=== PATIENT | male | born 1945 | race Caucasian/White ===

== ENCOUNTER 2018-10-14 09:17 | Outpatient (CLI) | payer MEDICARE, SELFPAY ==
[2018-10-14 10:21] LABS: PHA INR Fingerstick 2.4 (0.9-1.1)
== END 2018-10-14 10:23 | disposition home or self-care (01) ==
LOC: ACC 09:22
PROVIDERS: PCP Nuclear Medicine Nuclear Cardiology; Visit Provider Nurse Practitioner Family
DX: Z51.81 Encounter for therapeutic drug level monitoring (principal); Z79.01 Long term (current) use of anticoagulants; I25.10 Atherosclerotic heart disease of native coronary artery without angina pectoris; Z95.0 Presence of cardiac pacemaker
CPT/HCPCS: 85610; 99211; G0463

== ENCOUNTER 2018-11-25 09:28 | Outpatient (CLI) | payer MEDICARE, SELFPAY ==
[2018-11-25 14:25] LABS: PHA INR Fingerstick 2.2 (0.9-1.1)
== END 2018-11-25 14:30 | disposition home or self-care (01) ==
LOC: ACC 09:30
PROVIDERS: PCP Nurse Practitioner Family; Visit Provider Nurse Practitioner Family
DX: Z51.81 Encounter for therapeutic drug level monitoring (principal); Z79.01 Long term (current) use of anticoagulants
CPT/HCPCS: 85610; 99211; G0463

== ENCOUNTER → 2023-01-08 15:25 | Outpatient (CLI) | payer MEDICARE, SELFPAY ==
[2023-01-08 17:48] LABS: Alanine Aminotransferase 20 U/L (12-78); Albumin Level 4.1 g/dl (3.5-5.0); Albumin/Globulin Ratio 1.3 (1.1-1.8); Alkaline Phosphatase 74 U/L (38-126); Anion Gap 13.2 mEq/L (5-15); Aspartate Amino Transferase 28 U/L (17-59); Bilirubin,Total 0.5 mg/dl (0.2-1.3); Blood Urea Nitrogen 30 mg/dl (9-20); Calcium 9.1 mg/dl (8.4-10.2); Carbon Dioxide 27 mmol/L (22.0-30.0); Chloride 103 mmol/L (98-107); Estimated Glomerular Filt Rate 42 ml/min (>60); GFR (African American) 51 ML/MIN (>60); Globulin 3.2 g/dL (1.3-3.2); Glucose 105 mg/dl (74-100); Potassium 4.2 mmoL/L (3.5-5.1); Sodium 139 mmol/L (136-145); Total Protein,Serum 7.3 g/dl (6.3-8.2)
[2023-01-08 18:02] LABS: Basophils % 0.3 % (0.1-2.0); Eosinophils # 0.2 K/mm3 (0.0-0.4); Eosinophils % 2.5 % (0.1-12.0); Hematocrit 42.4 % (42.0-52.0); Lymphocytes % 22.6 % (10-50); Mean Corpuscular Hemoglobin 28.3 pg (27.0-31.2); Mean Corpuscular Volume 85.9 fl (80-94); Mean Platelet Volume 8.4 fl (7.4-10.4); Monocytes # 0.8 K/mm3 (0.1-1.0); Monocytes % 8.5 % (1.7-9.3); Neutrophils # 5.8 K/mm3 (1.8-7.8); Platelet Count 184 K/mm3 (142-424); Red Blood Count 4.94 M/mm3 (4.60-6.20); Red Cell Distribution Width 14.4 % (11.5-17.5); White Blood Count 8.8 K/mm3 (4.8-10.8)
[2023-01-08 18:06] LABS: INR 2.42 (0.9-1.1); Prothrombin Time 24.7 seconds (10.1-12.5); T4 (Thyroxine) 9.2 ug/dl (5.53-11.0)
[2023-01-08 18:19] LABS: Thyroid Stimulating Hormone 0.76 uIU/mL (0.465-4.68)
== END ==
PROVIDERS: PCP Family Medicine; Visit Provider Family Medicine
DX: I48.91 Unspecified atrial fibrillation (principal); I10 Essential (primary) hypertension; E05.90 Thyrotoxicosis, unspecified without thyrotoxic crisis or storm; Z51.81 Encounter for therapeutic drug level monitoring; Z79.01 Long term (current) use of anticoagulants
CPT/HCPCS: 80053; 84436; 84443; 85025; 85610

== ENCOUNTER → 2023-01-10 07:48 | Outpatient (CLI) | payer MEDICARE, SELFPAY ==
--- NOTE | 2023-01-10 07:54 | US_ITS ---
FINAL REPORT CLINICAL HISTORY: thyroid nodule COMPARISON: None FINDINGS: THYROID ULTRASOUND: The right lobe of the thyroid gland is somewhat enlarged measuring 5.5 x 2.2 x 1.6 cm in size. The right lobe is diffusely heterogeneous. There is a nodule present in the right lobe of the thyroid gland which measures 7 x 5 x 5 mm in size, is mixed cystic and solid and isoechoic, a TI-RADS 2 nodule by category. The left lobe of the thyroid gland is also somewhat enlarged, measuring 4.6 x 2 x 1.7 cm in size. The left lobe is diffusely heterogeneous, making individual nodules difficult to distinguish. The isthmus of the thyroid gland measures 6 mm in thickness. IMPRESSION: Mildly enlarged diffusely heterogeneous thyroid gland, with a single 7 mm nodule in the right lobe of the thyroid gland, a TI-RADS 2 category nodule. No follow-up is required at this time by TI-RADS criteria. Reviewed, Interpreted and Dictated by Lawrence Davis III, MD Transcribed by Carol Mcnulty Authenticated and [facility]
--- NOTE | 2023-01-10 07:54 | US_ITS ---
FINAL REPORT CLINICAL HISTORY: AAA COMPARISON: None FINDINGS: Sonographic images of the abdomen were obtained. There is fatty infiltration of the liver. The gallbladder has an unremarkable appearance without evidence of gallstones. There is no evidence of biliary ductal dilatation. The common hepatic duct measures 5 mm, which is within normal limits. Limited images of the pancreas are unremarkable. The spleen size is normal. The right kidney measures 8.3 in length. The left kidney measures 14.4 in length. The right kidney is significantly smaller than the left, with cortical thinning and/or scar. There is no evidence of hydronephrosis. There is an abdominal aortic aneurysm that measures 6.7 cm in greatest diameter. Limited images of the inferior vena cava are unremarkable. IMPRESSION: 6.7 cm diameter abdominal aortic aneurysm. These results were called to Dr. Mohit Sotelo on 01/10/2023 at 9:40 AM. Right kidney significantly smaller than the left with cortical thinning and/or scar. This may represent either renal artery stenosis or chronic pyelonephritis. Fatty infiltration of the liver. Reviewed, Interpreted and Dictated by Lawrence Davis III, MD Transcribed by Carol Mcnulty Authenticated and [facility]
== END ==
PROVIDERS: PCP Family Medicine; Visit Provider Family Medicine
DX: E04.1 Nontoxic single thyroid nodule (principal); I71.40 Abdominal aortic aneurysm, without rupture, unspecified
CPT/HCPCS: 76536; 76700

== ENCOUNTER 2023-10-04 11:19 | Outpatient (CLI) | payer MEDICARE, SELFPAY ==
[2023-10-04 16:54] LABS: INR 3.05 (0.9-1.1); Prothrombin Time 30.6 seconds (10.1-12.5)
== END 2023-10-04 23:59 | disposition home or self-care (01) ==
LOC: LAB.DROPOF 10-05 11:20
PROVIDERS: PCP Family Medicine; Visit Provider Family Medicine
DX: Z79.01 Long term (current) use of anticoagulants (principal); Z51.81 Encounter for therapeutic drug level monitoring
CPT/HCPCS: 85610

== ENCOUNTER 2023-11-06 10:35 | Outpatient (CLI) | payer MEDICARE, SELFPAY ==
[2023-11-06 17:55] LABS: INR 1.97 (0.9-1.1); Prothrombin Time 20.6 seconds (10.1-12.5)
== END 2023-11-06 23:59 | disposition home or self-care (01) ==
LOC: LAB.DROPOF 11-07 10:36
PROVIDERS: PCP Family Medicine; Visit Provider Family Medicine
DX: I48.20 Chronic atrial fibrillation, unspecified (principal); E78.5 Hyperlipidemia, unspecified; I10 Essential (primary) hypertension; I71.40 Abdominal aortic aneurysm, without rupture, unspecified; Z95.0 Presence of cardiac pacemaker
CPT/HCPCS: 85610

== ENCOUNTER 2023-12-16 14:25 | Outpatient (CLI) | payer MEDICARE, SELFPAY ==
[2023-12-16 16:58] LABS: INR 2.17 (0.9-1.1); Prothrombin Time 22.5 seconds (10.1-12.5)
== END 2023-12-16 23:59 | disposition home or self-care (01) ==
LOC: LAB.DROPOF 12-17 15:06
PROVIDERS: PCP Family Medicine; Visit Provider Family Medicine
DX: I48.20 Chronic atrial fibrillation, unspecified (principal)
CPT/HCPCS: 85610

== ENCOUNTER 2024-02-10 16:50 | Outpatient (CLI) | payer MEDICARE, SELFPAY ==
[2024-02-10 16:21] LABS: INR 2.58 (0.9-1.1); Prothrombin Time 26.3 seconds (10.1-12.5)
== END 2024-02-10 23:59 | disposition home or self-care (01) ==
LOC: LAB.DROPOF 16:50
PROVIDERS: PCP Family Medicine; Visit Provider Family Medicine
DX: I48.20 Chronic atrial fibrillation, unspecified (principal)
CPT/HCPCS: 85610

== ENCOUNTER 2024-04-21 14:45 | Outpatient (CLI) | payer MEDICARE, SELFPAY ==
[2024-04-21 17:15] LABS: INR 2.31 (0.9-1.1); Prothrombin Time 23.8 seconds (10.1-12.5)
[2024-04-21 17:22] LABS: Alanine Aminotransferase 19 U/L (12-78); Albumin/Globulin Ratio 1.5 (1.1-1.8); Alkaline Phosphatase 61 U/L (38-126); Aspartate Amino Transferase 31 U/L (17-59); Bilirubin,Total 0.7 mg/dl (0.2-1.3); Blood Urea Nitrogen 34 mg/dl (9-20); Calcium 9.1 mg/dl (8.4-10.2); Carbon Dioxide 25 mmol/L (22.0-30.0); Chloride 106 mmol/L (98-107); Estimated Glomerular Filt Rate 39 ml/min (>60); GFR (African American) 47 ML/MIN (>60); Globulin 2.6 g/dL (1.3-3.2); Glucose 98 mg/dl (74-100); Sodium 139 mmol/L (136-145); Total Protein,Serum 6.6 g/dl (6.3-8.2)
[2024-04-21 17:58] LABS: HIV Combo NEGATIVE (Negative)
[2024-04-21 18:23] LABS: Basophils % 0.5 % (0.1-2.0); Eosinophils % 1.1 % (0.1-12.0); Hemoglobin 12.9 g/dL (14.1-18.0); Mean Corpuscular HGB Conc 32.3 g/dL (31.8-35.4); Mean Corpuscular Hemoglobin 27.8 pg (27.0-31.2); Mean Corpuscular Volume 86.2 fl (80-94); Mean Platelet Volume 10.2 fl (7.4-10.4); Monocytes % 11.8 % (1.7-9.3); Neutrophils % 51.2 % (37.0-80.0); Platelet Count 166 K/mm3 (142-424); Red Blood Count 4.64 M/mm3 (4.60-6.20); Red Cell Distribution Width 15.1 % (11.5-17.5)
[2024-04-21 18:24] LABS: Basophils # 0.1 K/mm3 (0-0.2); Eosinophils # 0.1 K/mm3 (0.0-0.4); Lymphocytes # 3.9 K/mm3 (0.7-4.5); Monocytes # 1.3 K/mm3 (0.1-1.0); Neutrophils # 5.7 K/mm3 (1.8-7.8)
[2024-04-21 18:29] LABS: Anion Gap 12.1 mEq/L (5-15); Potassium 4.1 mmoL/L (3.5-5.1)
[2024-04-22 11:40] LABS: HCV Ab Non Reactive (Non Reactive)
== END 2024-04-21 23:59 | disposition home or self-care (01) ==
LOC: LAB.DROPOF 04-22 12:31
PROVIDERS: PCP Family Medicine; Visit Provider Family Medicine
DX: I48.20 Chronic atrial fibrillation, unspecified (principal); I71.40 Abdominal aortic aneurysm, without rupture, unspecified; N43.3 Hydrocele, unspecified; Z11.59 Encounter for screening for other viral diseases; Z11.4 Encounter for screening for human immunodeficiency virus [HIV]
CPT/HCPCS: 80053; 85025; 85610; 86803; 87389

== ENCOUNTER 2024-04-24 08:12 | Outpatient (CLI) | payer MEDICARE, SELFPAY ==
--- NOTE | 2024-04-24 08:17 | US_ITS ---
FINAL REPORT CLINICAL HISTORY: f/u AAA COMPARISON: 01/30/2023 FINDINGS: ULTRASOUND ABDOMINAL AORTA Sagittal and transverse images with Doppler exam was performed of the aorta. There is a large abdominal aortic aneurysm measuring up to 7.6 cm, previously measured 6.7 cm. The iliac vessels are not well-visualized. IMPRESSION: Enlarging abdominal aortic aneurysm. Recommend vascular surgical consultation and CTA for further evaluation Reviewed, Interpreted and Dictated by Verena Jackson MD Transcribed by Mary Maldonado Authenticated and [facility]
--- NOTE | 2024-04-24 08:17 | US_ITS ---
FINAL REPORT CLINICAL HISTORY: testicular swelling FINDINGS: SCROTAL ULTRASOUND Testes have a homogeneous architecture. No masses are seen. Normal flow is demonstrated by Doppler exam. No significant fluid collections are present. 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 Small bilateral hydroceles identified. Epididymal structures are unremarkable. IMPRESSION: Incidental note of microlithiasis bilaterally which can be associated with increased risk of the testicular neoplasm. Urologic follow-up may be considered. Reviewed, Interpreted and Dictated by Verena Jackson MD Transcribed by Mary Maldonado Authenticated and [facility]
== END 2024-04-24 23:59 | disposition home or self-care (01) ==
LOC: RAD 08:14
PROVIDERS: PCP Family Medicine; Visit Provider Family Medicine
DX: I71.40 Abdominal aortic aneurysm, without rupture, unspecified (principal); N43.3 Hydrocele, unspecified
CPT/HCPCS: 76770; 76870

== ENCOUNTER 2024-09-30 19:51 | Emergency (ER) | payer MEDICARE, SELFPAY ==
[2024-09-30] VITALS (11 sets, daily range): BP systolic 63–117; BP diastolic 36–70; PULSE 67–81; RESP 14–76; TEMP 35–36.6; O2SAT 94–97; BMI 31.1
--- OUTSIDE RECORDS SUMMARY | 2024-09-30 15:25 | XMS_ITS | Continuity of Care Document ---
Author Organization [facility] Phone Care Team Providers Care Electrical High Tension Tester Name Role Phone NEY WEBB Primary Attending NEY WEBB Admitting [phone] [facility] [phone] NEY WEBB Unavailable [phone] ALLERGIES AND ADVERSE REACTIONS ALLERGIES AND ADVERSE REACTIONS Code System Allergy Substance Adverse Reaction Date Reaction (Severity) Comment Status Reported By Updated By No Known Allergies [email or web address] on September 28, 2024 2:45:06 AM UT ASSESSMENTS Pneumonia ; PROBLEMS PATIENT PROBLEMS Code Description/Comments Category Status Upda araceli By [id number] Pneumonia active [id number] on September 28, 2024 2:40:19 AM UT RESULTS Patient: JACQUE Tony Date of : 1945 LABORATORY RESULTS ORDER 100: CBC AUTO W DIFF ( LOINC: 50927-8) ORDER DATE: September 27, 2024 11:13:00 PM UTC Specimen Source: Whole Blood Specimen Type: Whole blood s ample PERFORMING LAB: [address] [id number] Result Comment: Final Result Date: September 28, 2024 12:12:00 AM UT (TECH: RJV) LOINC TEST FLAG RESULT REFERENCE RANGE UPDA ARACELI BY 6690-2 Leukocytes [#/volume] in Blood by Automated count H 19.3 10^3/uL 4.5 10^3/uL - 11.5 10^3/uL September 28, 2024 12:12:00 AM UTC (TECH: RJV) 789-8 Erythrocytes [#/volume] in Blood by Automated count N 4.61 10^6/uL 4.25 10^6/uL - 5.57 10^6/uL September 28, 2024 12:12:00 AM UTC (TECH: [facility]) 718-7 Hemoglobin [Mass/volume] in Blood L 12.8 g/dL 13.5 g/dL - 17.2 g/dL September 28, 2024 12:12:00 AM UTC (TECH: [facility]) 25379-4 Hematocrit [Volume Fraction] of Blood L 39.8 % 42.0 % - 52.0 % September 28, 2024 12:12:00 AM UTC (TECH: [facility]) 787-2 Erythrocyte mean corpuscular volume [Entitic volume] by Automated count N 86.3 fl 80 fl - 95 fl September 28, 2024 12:12:00 AM UTC (TECH: [facility]) 04329-8 Erythrocyte mean corpuscular hemoglobin [Entitic mass] in Blood from Fetus by Automated count N 27.8 pg 27.0 pg - 34.0 pg September 28, 2024 12:12:00 AM UTC (TECH: [facility]) 91363-1 Erythrocyte mean corpuscular hemoglobin concentration [Mass/volume] in Blood from Fetus by Automated count N 32.2 g/dL 32.0 g/dL - 36.0 g/dL September 28, 2024 12:12:00 AM UTC (TECH: [facility]) 71925-6 Platelets [#/volume] in Blood L 126 10^3/uL 150 10^3/uL - 450 10^3/uL September 28, 2024 12:12:00 AM UTC (TECH: [facility]) 40002-2 Erythrocyte distribution width [Ratio] H 15.3 % 12.3 % - 15.1 % September 28, 2024 12:12:00 AM UTC (TECH: [facility]) 97173-8 Platelet mean volume [Entitic volume] in Blood by Automated count N 9.1 fl 7.4 fl - 10.4 fl September 28, 2024 12:12:00 AM UTC (TECH: [facility]) 08665-3 Granulocytes/100 leukocytes in Blood by Automated count L 24.4 % 40 % - 75 % September 28, 2024 12:12:00 AM UTC (TECH: [facility]) 736-9 Lymphocytes/100 leukocytes in Blood by Automated count N 45.6 % 15 % - 57 % September 28, 2024 12:12:00 AM UTC (TECH: RJV) 5905-5 Monocytes/100 leukocytes in Blood by Automated count H 27.9 % 4.0 % - 12.0 % September 28, 2024 12:12:00 AM UTC (TECH: RJV) 713-8 Eosinophils/100 leukocytes in Blood by Automated count N 1.3 % 0.0 % - 4.0 % September 28, 2024 12:12:00 AM UTC (TECH: RJV) 706-2 Basophils/100 leukocytes in Blood by Automated count N 0.3 % 0.0 % - 1.0 % September 28, 2024 12:12:00 AM UTC (TECH: RJV) 98079-5 Immature granulocytes [#/volume] in Blood N 0.5 % 0.0 % - 0.8 % September 28, 2024 12:12:00 AM UTC (TECH: RJV) 17118-0 Granulocytes [#/volume] in Blood by Automated count N 4.71 10^3/uL September 28, 2024 12:12:00 AM UTC (TECH: RJV) 731-0 Lymphocytes [#/volume] in Blood by Automated count N 8.80 10^3/uL September 28, 2024 12:12:00 AM UTC (TECH: RJV) 742-7 Monocytes [#/volume] in Blood by Automated count N 5.39 10^3/uL September 28, 2024 12:12:00 AM UTC (TECH: RJV) 711-2 Eosinophils [#/volume] in Blood by Automated count N 0.25 10^3/uL September 28, 2024 12:12:00 AM UTC (TECH: RJV) 704-7 Basophils [#/volume] in Blood by Automated count N 0.05 10^3/uL September 28, 2024 12:12:00 AM UTC (TECH: RJV) 44324-8 Immature granulocytes [#/volume] in Blood N 0.09 10^3/uL September 28, 2024 12:12:00 AM UTC (TECH: RJV) 44143-1 Manual differential performed [Presence] in Blood N YES September 28, 2024 12:12:00 AM UTC (TECH: RJV) 19096-0 Neutrophils.segmente d/100 leukocytes in Blood by Automated count L 24 % 36 % - 66 % September 28, 2024 12:12:00 AM UTC (TECH: RJV) 736-9 Lymphocytes/100 leukocytes in Blood by Automated count H 51 % 15 % - 41 % September 28, 2024 12:12:00 AM UTC (TECH: RJV) 5905-5 Monocytes/100 leukocytes in Blood by Automated count H 24 % 2 % - 9 % September 28, 2024 12:12:00 AM UTC (TECH: RJV) 713-8 Eosinophils/100 leukocytes in Blood by Automated count N 1 % 0 % - 3 % September 28, 2024 12:12:00 AM UTC (TECH: RJV) 13971-6 Erythrocytes [Morphology] in Blood by Automated count N NORMAL NORMAL September 28, 2024 12:12:00 AM UTC (TECH: RJV) 778-1 Platelets [#/volume] in Blood by Manual count N DECREASED ADEQUATE September 28, 2024 12:12:00 AM UTC (TECH: RJV) 9317-9 Platelet adequacy [Presence] in Blood by Light microscopy N NORMAL NORMAL September 28, 2024 12:12:00 AM UTC (TECH: RJV) ORDER 200: COMP METABOLIC PA LUIS ANTONIO (LOINC: 56339-5) ORDER DATE: September 27, 2024 11:13:00 PM UT Specimen Source: Plasma Specimen Type: Plasma specim en PERFORMING LAB: [address] [id number] Result Comment: Final Result Date: September 27, 2024 11:33:00 PM UT (TECH: RJV) LOINC TEST FLAG RESULT REFERENCE RANGE UPDA ARACELI BY 2951-2 Sodium [Moles/volume ] in Serum or Plasma N 138 mmol/L 136 mmol/L - 145 mmol/L September 27, 2024 11:33:00 PM UTC (TECH: RJV) 2823-3 Potassium [Moles/volume] in Serum or Plasma N 4.0 mmol/L 3.5 mmol/L - 5.1 mmol/L September 27, 2024 11:33:00 PM UTC (TECH: RJV) 2075-0 Chloride [Moles/volume] in Serum or Plasma N 102 mmol/L 98 mmol/L - 107 mmol/L September 27, 2024 11:33:00 PM UTC (TECH: [employer]) 8-9 Carbon dioxide, tota l [Moles/volume] in Serum or Plasma N 27 mmol/L 21 mmol/L - 32 mmol/L September 27, 2024 11:33:00 PM UTC (TECH: [employer]) 12210-2 Anion gap 3 in Serum or Plasma N 9.0 September 27, 2024 11:33:00 PM UTC (TECH: [employer]) 2345-7 Glucose [Mass/volume ] in Serum or Plasma H 129 mg/dL 70 mg/dL - 110 mg/dL September 27, 2024 11:33:00 PM UTC (TECH: [employer]) 3094-0 Urea nitrogen [Mass/volume] in Serum or Plasma H 27 mg/dL 7 mg/dL - 18 mg/dL September 27, 2024 11:33:00 PM UTC (TECH: [employer]) 2160-0 Creatinine [Mass/volume] in Serum or Plasma H 1.9 mg/dL 0.8 mg/dL - 1.3 mg/dL September 27, 2024 11:33:00 PM UTC (TECH: [employer]) 3097-3 Urea nitrogen/Creatinine [Mass Ratio] in Serum or Plasma N 14.2 9 - September 27, 2024 11:33:00 PM UTC (TECH: [employer]) 93840-3 Glomerular filtratio n rate/1.73 sq M.predicted by Creatinine-based formula (MDRD) L 35 mL/min >60 September 27, 2024 11:33:00 PM UTC (TECH: [employer]) 80110-1 Osmolality of Serum or Plasma by calculated by sum of electrolytes N 294 mosm/kg 275 mosm/kg - 301 mosm/kg September 27, 2024 11:33:00 PM UTC (TECH: [employer]) 2885-2 Protein [Mass/volume ] in Serum or Plasma N 7.3 g/dL 6.4 g/dL - 8.2 g/dL September 27, 2024 11:33:00 PM UTC (TECH: [employer]) 1751-7 Albumin [Mass/volume ] in Serum or Plasma N 3.9 g/dL 3.4 g/dL - 5.0 g/dL September 27, 2024 11:33:00 PM UTC (TECH: RJV) 95216-3 Calcium [Mass/volume ] in Serum or Plasma N 9.1 mg/dL 8.5 mg/dL - 10.1 mg/dL September 27, 2024 11:33:00 PM [facility] (Protek-dor: [facility]) 77458-8 Calcium [Mass/volume ] corrected for total protein in Serum or Plasma N 9.2 mg/dL 8.5 mg/dL - 10.1 mg/dL September 27, 2024 11:33:00 PM [facility] (Protek-dor: [facility]) 1975-2 Bilirubin.total [Mass/volume] in Serum or Plasma N 0.6 mg/dL 0.4 mg/dL - 1.5 mg/dL September 27, 2024 11:33:00 PM [facility] (Protek-dor: [facility]) 1920-8 Aspartate aminotransferase [Enzymatic activity/volume] in Serum or Plasma N 25 U/L 15 U/L - 37 U/L September 27, 2024 11:33:00 PM [facility] (Protek-dor: [facility]) 1742-6 Alanine aminotransferase [Enzymatic activity/volume] in Serum or Plasma N 13 U/L 12 U/L - 78 U/L September 27, 2024 11:33:00 PM [facility] (TECH: [facility]) 6768-6 Alkaline phosphatase [Enzymatic activity/volume] in Serum or Plasma N 87 U/L September 27, 2024 11:33:00 PM [facility] (TECH: [facility]) ORDER 300: D-DIMER QUANTITAT YAKELIN (LOINC: 7799-0) ORDER DATE: September 27, 2024 11:13:00 PM [facility] Specimen Source: Plasma Specimen Type: Plasma specim en PERFORMING LAB: [address] [id number] Result Comment: Final Result Date: September 28, 2024 12:14:00 AM [facility] (TECH: [facility]) LOINC TEST FLAG RESULT REFERENCE RANGE UPDA ARACELI BY 7799-0 Fibrin D-dimer [Units/volume] in Platelet poor plasma HH 4295 ng/mL 0 ng/mL - 500 ng/mL September 28, 2024 12:14:00 AM [facility] (TECH: [facility]) ORDER 400: PT PROTHROMBIN TI ME W INR (LOINC: 40440-9) ORDER DATE: September 27, 2024 11:13:00 PM [facility] Specimen Source: Plasma Specimen Type: Plasma specim en PERFORMING LAB: [address] [id number] Result Comment: Final Result Date: September 27, 2024 11:32:00 PM UTC (TECH: RJV) LOINC TEST FLAG RESULT [place] [address]-6 INR in Platelet poor plasma or blood by Coagulation assay H 18.8 seconds 9.1 seconds - 12.0 seconds September 27, 2024 11:32:00 PM UTC (TECH: RJV) 6301-6 INR in Platelet poor plasma by Coagulation assay H 1.79 0.9 - 1.1 September 27, 2024 11:32:00 PM UTC (TECH: RJV) ORDER 500: PTT PARTIAL THROM B TIME (LOINC: 82778-7) ORDER DATE: September 27, 2024 11:13:00 PM UTC Specimen Source: Plasma Specimen Type: Plasma specim en PERFORMING LAB: [address] [id number] Result Comment: Final Result Date: September 27, 2024 11:32:00 PM UTC (TECH: RJV) LOINC TEST FLAG RESULT [place] [address]-5 Activated partial thromboplastin time (aPTT) in Platelet poor plasma by Coagulation assay N 31.6 seconds 24.5 seconds - 32.8 seconds September 27, 2024 11:32:00 PM UTC (TECH: RJV) ORDER 600: TROPONIN QUANT (L OINC: 27114-2) ORDER DATE: September 27, 2024 11:13:00 PM UTC Specimen Source: Plasma Specimen Type: Plasma specim en PERFORMING LAB: [address] [id number] Result Comment: Final Result Date: September 27, 2024 11:33:00 PM UTC (TECH: RJV) LOINC TEST FLAG [place] [address]-5 Troponin I.cardiac panel - Serum or Plasma by High sensitivity method N 10 ng/L 0 ng/L - 76 ng/L September 27, 2024 11:33:00 PM UTC (TECH: RJV) ORDER 700: INFLUENZA A/B SCR EEN (LOINC: 80913-5) ORDER DATE: September 27, 2024 11:13:00 PM UTC Specimen Source: Swab Specimen Type: Swab PERFORMING LAB: [address] [id number] Result Comment: Final Result Date: September 27, 2024 11:45:00 PM UTC (TECH: RJV) LOINC TEST FLAG RESULT [place] [address]-3 Influenza virus A Ag [Presence] in Nose N negative NEGATIVE September 27, 2024 11:45:00 PM UTC (TECH: RJV) 70612-4 Haemophilus influenzae B Ag [Presence] in Serum N negative NEGATIVE September 27, 2024 11:45:00 PM UTC (TECH: RJV) 65089-0 Internal control result N PASS PASS September 27, 2024 11:45:00 PM UTC (TECH: RJV) ORDER 800: COVID ANTIGEN IN HOUSE (LOINC: 500560-5) ORDER DATE: September 27, 2024 11:13:00 PM UTC Specimen Source: Nasopharyng eal Specimen Type: Specimen from nasopharyngeal structure PERFORMING LAB: [address] [id number] Result Comment: Final Result Date: September 27, 2024 11:37:00 PM UTC (TECH: RJV) LOINC TEST FLAG RESULT REFERENCE RANGE UPDA ARACELI BY 213989-7 SARS-CoV+SARS-CoV- 2 (COVID-19) Ag [Presence] in Specimen N negative NEGATIVE September 27, 2024 11:37:00 PM UTC (TECH: RJV) 40917-9 Internal control result N PASS PASS September 27, 2024 11:37:00 PM UTC (TECH: RJV) ORDER 1100: B-TYPE NATRIURET IC PEPTIDE BNP (LOINC: 18984-3) ORDER DATE: September 27, 2024 11:17:00 PM UTC Specimen Source: Whole Blood Specimen Type: Whole blood s ample PERFORMING LAB: [address] [id number] Result Comment: Final Result Date: September 27, 2024 11:38:00 PM UTC (TECH: RJV) LOINC TEST FLAG RESULT [place] [address]-5 Natriuretic peptide B [Mass/volume] in Serum or Plasma H 222.0 pg/mL 0.0 pg/mL - 100 pg/mL September 27, 2024 11:38:00 PM UTC (TECH: RJV) ORDER 2801: CBC AUTO NO DIFF HEMOGRAM (LOINC: 23165-2) ORDER DATE: September 28, 2024 2:46:00 AM UTC Specimen Source: Whole Blood Specimen Type: Whole blood s ample PERFORMING LAB: [address] [id number] Result Comment: Final Result Date: September 28, 2024 9:58:00 AM UTC (TECH: [employer]) LOINC TEST FLAG RESULT REFERENCE RANGE UPDA ARACELI BY 6690-2 Leukocytes [#/volume] in Blood by Automated count H 14.3 10^3/uL 4.5 10^3/uL - 11.5 10^3/uL September 28, 2024 9:58:00 AM UTC (TECH: [employer]) 789-8 Erythrocytes [#/volume] in Blood by Automated count N 4.53 10^6/uL 4.25 10^6/uL - 5.57 10^6/uL September 28, 2024 9:58:00 AM UTC (TECH: [employer]) 718-7 Hemoglobin [Mass/volume] in Blood L 12.8 g/dL 13.5 g/dL - 17.2 g/dL September 28, 2024 9:58:00 AM UTC (TECH: [employer]) 87449-1 Hematocrit [Volume Fraction] of Blood L 38.8 % 42.0 % - 52.0 % September 28, 2024 9:58:00 AM UTC (TECH: [employer]) 787-2 Erythrocyte mean corpuscular volume [Entitic volume] by Automated count N 85.7 fl 80 fl - 95 fl September 28, 2024 9:58:00 AM UTC (TECH: [employer]) 32105-8 Erythrocyte mean corpuscular hemoglobin [Entitic mass] in Blood from Fetus by Automated count N 28.3 pg 27.0 pg - 34.0 pg September 28, 2024 9:58:00 AM UTC (TECH: [employer]) 68660-6 Erythrocyte mean corpuscular hemoglobin concentration [Mass/volume] in Blood from Fetus by Automated count N 33.0 g/dL 32.0 g/dL - 36.0 g/dL September 28, 2024 9:58:00 AM UTC (TECH: [employer]) 66428-8 Platelets [#/volume] in Blood L 125 10^3/uL 150 10^3/uL - 450 10^3/uL September 28, 2024 9:58:00 AM UT (TECH: [employer]) 51421-8 Erythrocyte distribution width [Ratio] N 15.1 % 12.3 % - 15.1 % September 28, 2024 9:58:00 AM UT (TECH: [employer]) 66181-7 Platelet mean volume [Entitic volume] in Blood by Automated count N 9.5 fl 7.4 fl - 10.4 fl September 28, 2024 9:58:00 AM UT (TECH: [employer]) ORDER 2901: BASIC METABOLIC PANEL (LOINC: 59182-8) ORDER DATE: September 28, 2024 2:46:00 AM UT Specimen Source: Serum/Plasm a Specimen Type: Acellular blo od (serum or plasma) specimen PERFORMING LAB: [address] [id number] Result Comment: Final Result Date: September 28, 2024 10:17:00 AM UT (TECH: [employer]) LOINC TEST FLAG RESULT REFERENCE RANGE UPDA ARACELI BY 2951-2 Sodium [Moles/volume] in Serum or Plasma N 141 mmol/L 136 mmol/L - 145 mmol/L September 28, 2024 10:17:00 AM UT (TECH: [employer]) 2823-3 Potassium [Moles/volume] in Serum or Plasma N 3.7 mmol/L 3.5 mmol/L - 5.1 mmol/L September 28, 2024 10:17:00 AM [facility] (TECH: [employer]) 2075-0 Chloride [Moles/volume] in Serum or Plasma N 105 mmol/L 98 mmol/L - 107 mmol/L September 28, 2024 10:17:00 AM UT (TECH: [employer]) 8-9 Carbon dioxide, total [Moles/volume] in Serum or Plasma N 23 mmol/L 21 mmol/L - 32 mmol/L September 28, 2024 10:17:00 AM UT (TECH: [employer]) 20134-5 Anion gap 3 in Serum or Plasma N 13.0 September 28, 2024 10:17:00 AM [facility] (TECH: [employer]) 2345-7 Glucose [Mass/volume] in Serum or Plasma H 189 mg/dL 70 mg/dL - 110 mg/dL September 28, 2024 10:17:00 AM UT (TECH: [employer]) 3094-0 Urea nitrogen [Mass/volume] in Serum or Plasma H 28 mg/dL 7 mg/dL - 18 mg/dL September 28, 2024 10:17:00 AM UT (TECH: [employer]) 2160-0 Creatinine [Mass/volume] in Serum or Plasma H 1.8 mg/dL 0.8 mg/dL - 1.3 mg/dL September 28, 2024 10:17:00 AM UT (TECH: [employer]) 3097-3 Urea nitrogen/Creatinine [Mass Ratio] in Serum or Plasma N 15.6 9 - September 28, 2024 10:17:00 AM UT (TECH: [employer]) 60326-1 Glomerular filtration rate/1.73 sq M.predicted by Creatinine-based formula (MDRD) L 38 mL/min >60 September 28, 2024 10:17:00 AM [facility] (TECH: [employer]) 97633-9 Osmolality of Serum or Plasma by calculated by sum of electrolytes H 304 mosm/kg 275 mosm/kg - 301 mosm/kg September 28, 2024 10:17:00 AM UT (TECH: [employer]) 49475-9 Calcium [Mass/volume] in Serum or Plasma N 8.9 mg/dL 8.5 mg/dL - 10.1 mg/dL September 28, 2024 10:17:00 AM [facility] (TECH: [employer]) ORDER 3001: MAGNESIUM (LOINC : 48708-4) ORDER DATE: September 28, 2024 2:46:00 AM UT Specimen Source: Serum/Plasm a Specimen Type: Acellular blo od (serum or plasma) specimen PERFORMING LAB: [address] [id number] Result Comment: Final Result Date: September 28, 2024 10:17:00 AM [facility] (TECH: [employer]) LOINC TEST FLAG RESULT [place] [address]-0 Magnesium [Mass/volume] in Serum or Plasma N 2.2 mg/dL 1.8 mg/dL - 2.4 mg/dL September 28, 2024 10:17:00 AM [facility] (TECH: [employer]) ORDER 3101: PT PROTHROMBIN T PAUL W INR (LOINC: 29854-2) ORDER DATE: September 28, 2024 2:46:00 AM UT Specimen Source: Plasma Specimen Type: Plasma specim en PERFORMING LAB: [address] [id number] Result Comment: Final Result Date: September 28, 2024 10:01:00 AM UT (TECH: [employer]) LOINC TEST FLAG RESULT [place] [address]-9 INR in Platelet poor plasma or blood by Coagulation assay H 20.5 seconds 9.1 seconds - 12.0 seconds September 28, 2024 10:01:00 AM UT (TECH: [employer]) 6301-6 INR in Platelet poor plasma by Coagulation assay H 1.96 0.9 - 1.1 September 28, 2024 10:01:00 AM UT (TECH: [employer]) ORDER 3201: PTT PARTIAL THRO MB TIME (LOINC: 43716-5) ORDER DATE: September 28, 2024 2:46:00 AM UT Specimen Source: Plasma Specimen Type: Plasma specim en PERFORMING LAB: [address] [id number] Result Comment: Final Result Date: September 28, 2024 10:02:00 AM UT (TECH: [employer]) LOINC TEST FLAG RESULT [place] [address]-0 Activated partial thromboplastin time (aPTT) in Platelet poor plasma by Coagulation assay H 38.7 seconds 24.5 seconds - 32.8 seconds September 28, 2024 10:02:00 AM UT (TECH: [employer]) LABORATORY NARRATIVE RESULTS Information is not available RADIOLOGY RESULTS ORDER 1000: CHEST SINGLE VIE W/PORTABLE (LOINC: 52737-0) ORDER DATE: September 27, 2024 11:13:00 PM UTC PERFORMING LAB: [address] [id number] Final Result Date: September 27 11:39:[address] [place] [address] Name: ELIA SANTILLAN Exam Date: 09/27/2024 : 1945 Age 79 years Gender: M Physician: Facility: [facility] Facility HSV: Outpatient Exam: CHEST SINGLE VIEW/PORTABLE FINAL REPORT TECHNIQUE: null CLINICAL HISTORY: soa x2 days / hx bradycardia / pacemaker / former smoker x30 years / no pulmonary hx COMPARISON: null FINDINGS: 1 view chest x-ray Comparison: CR - CHEST SINGLE VIEW/PORTABLE - 12/29/15 20:55 EDT Findings: The prior x-ray report is not available for review. There is enlargement of the cardiopericardial silhouette. Pacemaker. Calcification of the aortic arch. There is increase of interstitial lung markings. There is opacity of the right lung base. No acute fracture. IMPRESSION: IMPRESSION: Cardiomegaly with pulmonary vascular congestion. Atelectasis/infiltrate of the right lung base. Authenticated and [facility] Dictated By: Amanda Marroquin Transcribed By: Transcribed On: 09/27/2024 7:39 PM Electronically signed by: Amanda Marroquin 09/27/2024 Thank you for referring ELIA SANTILLAN to [facility]. Legally authenticated by HUSSAIN BISHOP MD 2024-09-27 19:39:23 ORDER 3700: CT CHEST PE PROT OCOL (LOINC: 49979-0) ORDER DATE: September 28, 2024 2:42:00 PM [facility] PERFORMING LAB: [address] [id number] Final Result Date: September 28 4:39:[address] [place] [address] Name: ELIA SANTILLAN Exam Date: 09/28/2024 : 1945 Age 79 years Gender: M Physician: NEY WEBB Facility: [facility] Facility HSV: Outpatient Exam: CT CHEST PE PROTOCOL EXAM: CT CHEST ANGIOGRAPHY WITH IV CONTRAST HISTORY: r/o PE. Shortness of air COMPARISON: 03/20/2023. TECHNIQUE: CT angiography through the chest was performed after the administration of intravenous contrast for evaluation of pulmonary embolus. Reconstructed multiplanar MIP images were reviewed. CT scans at this facility use dose modulation, iterative reconstruction and/or weight based dosing when appropriate to reduce radiation dose to as low as reasonably achievable. FINDINGS: Evaluation for peripheral subsegmental branches are limited due to respiratory motion artifact. There is no central pulmonary embolus. The heart is enlarged. The thoracic aorta is normal caliber. There is no pleural effusion, pericardial effusion, or lymphadenopathy. The esophagus is within normal limits. Linear atelectasis is seen at the lung bases bilaterally. There is a component of superimposed irregular nodular opacities in the lower lobes bilaterally and inferior lingular segment. The central airways appear clear. There is no pneumothorax. No acute osseous abnormality. The imaged upper abdomen is stable compared to prior imaging. IMPRESSION: No pulmonary embolus. Bibasilar atelectasis. Irregular nodular opacities are seen in the lower lobes bilaterally and inferior lingular segment concerning for superimposed pneumonia. Electronically signed by: Bruno Madrid MD 09/28/2024 02:34 PM EDT Dictated By: Bruno Madrid Transcribed By: Transcribed On: 09/28/2024 12:39 PM Electronically signed by: Bruno Madrid 09/28/2024 Thank you for referring JACQUE ELIA to [facility]. Legally authenticated by JOSEPH LOPEZ MD 2024-09-28 12:39:40 PATHOLOGY NARRATIVE RESULTS Information is not available MICROBIOLOGY RESULTS No Micro Labs/Results Exist for Patient BLOOD ADMIN RESULTS Information is not available TREATMENT PLAN DISCHARGE MEDICATIONS Status RXNORM Medication Dose Route Frequency Dates Comments U pdated By Continued [id number] Albuterol Sulfate HFA Inhalation Aerosol Solution 108 (90 Base) MCG/ACT 2 PUF INHALED EVERY FOUR HOURS NEEDED Prescri bed: September 28, 2024 2:47:13 PM [facility] [id number] on September 28, 2024 2:47:13 PM [facility] Continued 751633 predniSONE Oral Tablet 50 MG 1 TAB ORAL ONCE DAILY Prescri bed: September 28, 2024 2:47:13 PM [facility] [id number] on September 28, 2024 2:47:13 PM [facility] Continued 324370 Azithromycin Oral Tablet 250 MG 1 TAB ORAL ONCE DAILY Prescri bed: September 28, 2024 2:47:13 PM [facility] [id number] on September 28, 2024 2:47:13 PM [place] Continued 362454 warfarin 5 mg tablet 1 TAB ORAL ONCE DAILY Prescri bed: September 28, 2024 2:47:13 PM [facility] Take one tablet daily x 6 days/week. Take 1/2 tablet on 7th day. [id number] on September 28, 2024 2:47:13 PM UT Continued 317685 Cefuroxime Axetil Oral Tablet 500 MG 1 TAB ORAL TWICE A DAY Prescri bed: September 28, 2024 2:47:13 PM UT [id number] on September 28, 2024 2:47:13 PM UT Continued 863131 metoprolol succinate 100 mg Tablet, Extended Release 24 hr 1 TAB ORAL ONCE DAILY Prescri bed: September 28, 2024 2:47:13 PM UT [id number] on September 28, 2024 2:47:13 PM UT Continued 724139 losartan 100 mg tablet 1 TAB ORAL ONCE DAILY Prescri bed: September 28, 2024 2:47:13 PM UT [id number] on September 28, 2024 2:47:13 PM UT Continued 160763 atorvastatin 20 mg tablet 1 TAB ORAL AT BEDTIME Prescri bed: September 28, 2024 2:47:13 PM [facility] [id number] on September 28, 2024 2:47:13 PM UT Continued 687552 amlodipine 5 mg tablet 1 TAB ORAL ONCE DAILY Prescri bed: September 28, 2024 2:47:13 PM UT [id number] on September 28, 2024 2:47:13 PM UT Continued 339700 Warfarin Sodium Oral Tablet 5 MG 0.5 TAB ORAL EVERY SATURDAY (COUMADIN) Prescri bed: September 28, 2024 2:47:13 PM UT Take 1/2 tablet on 7th day of week. Take 1 tablet daily for 6 days/week. [id number] on September 28, 2024 2:47:13 PM [facility] PATIENT OPEN ORDERS Code System Description Frequency Occurrences Priority Start Date Ordering Physician Updated By 600-7 LOINC Bacteria identified in Blood by Culture ONE TIME 0 Stat September 27, 2024 11:47: 00 PM [facility] DARRYL Bennett MD 2927 on September 27, 2024 11:47:00 PM [facility] 600-7 LOINC Bacteria identified in Blood by Culture ONE TIME 0 Stat September 27, 2024 11:47: 00 PM [facility] DARRYL Bennett MD 2927 on September 27, 2024 11:47:00 PM [facility] RFSNUT MEDHOST RFS - NUTRITIONAL CONSULT ONE TIME 0 Routine September 28, 2024 2:31:0 0 AM [facility] DELGADO-RAUL BREWSTER [id number] on September 28, 2024 2:31:00 AM [facility] SCHEDULED PROCEDURES Code System Description Status Scheduled Date Upd ated By Patient scheduled procedure information is not available. MEDICATIONS HOME MEDICATIONS Status [facility] Medication Dose Route Frequency Dates Comments Reported By Updated By Active [id number] 66693 warfarin 5 mg tablet 1.0 TAB ORAL DAILY Last Dose: Take one tablet daily x 6 days/week . Take 1/2 tablet on . [id number] on September 28, 2024 2:26:41 PM [facility] Active 546152 769320 90632 metoprolol succinate 100 mg Tablet, Extended Release 24 hr 1.0 TAB ORAL DAILY Last Dose: [id number] on September 27, 2024 11:34:36 PM [facility] Active 110002 814877 02098 losartan 100 mg tablet 1.0 TAB ORAL DAILY Last Dose: [id number] on September 28, 2024 2:45:56 AM [facility] Active 705273 393834 27490 atorvastatin 20 mg tablet 1.0 TAB ORAL BEDTIME Last Dose: [id number] on September 27, 2024 11:34:36 PM [facility] Active 312593 624105 82365 amlodipine 5 mg tablet 1.0 TAB ORAL DAILY Last Dose: [id number] on September 27, 2024 11:34:36 PM [facility] Active 289634 525150 19934 Warfarin Sodium Oral Tablet 5 MG 0.5 TAB ORAL CTHURS Last Dose: Take 1/2 tablet on 7th day of week. Take 1 tablet daily for 6 days/week . [id number] on September 28, 2024 2:29:40 PM [facility] DISCHARGE MEDICATIONS Status [facility] Medication Dose Route Frequency Dates Comments Physician Updated By Continue d [id number] 6699 3001 968 Albuterol Sulfate HFA Inhalation Aerosol Solution 108 (90 Base) MCG/ACT 2.0 PUF INHALE D EVERY FOUR HOURS NEEDED Prescr ibed: September 28, 2024 2:47:1 3 PM [facility] BREWSTER [id number] on September 28, 2024 2:47:13 PM [facility] Continue d 450527 2869 8002 907 predniSONE Oral Tablet 50 MG 1.0 TAB ORAL ONCE DAILY Prescr ibed: September 28, 2024 2:47:1 3 PM UTC SANDY-ORT EZ NEY [id number] on September 28, 2024 2:47:13 PM UTC Continue d 825495 2491 1078 710 Azithromyci n Oral Tablet 250 MG 1.0 TAB ORAL ONCE DAILY Prescr ibed: September 28, 2024 2:47:1 3 PM UTC DELGADO-ORT EZ NYE [id number] on September 28, 2024 2:47:13 PM UTC Continue d 928201 0794 0543 902 warfarin 5 mg tablet 1.0 TAB ORAL ONCE DAILY Prescr ibed: September 28, 2024 2:47:1 3 PM UTC Take one tablet daily x 6 days/week . Take 1/2 tablet on day. SANDY-ORT EZ NEY [id number] on September 28, 2024 2:47:13 PM UTC Continue d 127283 2192 2025 720 Cefuroxime Axetil Oral Tablet 500 MG 1.0 TAB ORAL TWICE A DAY Prescr ibed: September 28, 2024 2:47:1 3 PM UTC SANDY-ORT EZ NEY [id number] on September 28, 2024 2:47:13 PM UTC Continue d 384055 7587 0572 100 metoprolol succinate 100 mg Tablet, Extended Release 24 hr 1.0 TAB ORAL ONCE DAILY Prescr ibed: September 28, 2024 2:47:1 3 PM UTC [facility] EZ NEY [id number] on September 28, 2024 2:47:13 PM UTC Continue d 845604 8404 0340 302 losartan 100 mg tablet 1.0 TAB ORAL ONCE DAILY Prescr ibed: September 28, 2024 2:47:1 3 PM UTC [facility] NEY [id number] on September 28, 2024 2:47:13 PM UTC Continue d 947994 6128 0088 390 atorvastati n 20 mg tablet 1.0 TAB ORAL AT BEDTIME Prescr ibed: September 28, 2024 2:47:1 3 PM UTC [facility] NEY [id number] on September 28, 2024 2:47:13 PM UTC Continue d 394190 6048 7048 811 amlodipine 5 mg tablet 1.0 TAB ORAL ONCE DAILY Prescr ibed: September 28, 2024 2:47:1 3 PM UTC [facility]-ORT EZ NEY [id number] on September 28, 2024 2:47:13 PM UT Continue d 857484 8320 4698 201 Warfarin Sodium Oral Tablet 5 MG 0.5 TAB ORAL EVERY SATURDAY (COUMADIN) Prescr ibed: September 28, 2024 2:47:1 3 PM UTC Take 1/2 tablet on 7th day of week. Take 1 tablet daily for 6 days/week . SANDY-ORLesly EZ NEY [id number] on September 28, 2024 2:47:13 PM UT INPATIENT MEDICATIONS Status [facility] Medication Dose Route Frequency Rat e Quantity Dates Comments Physician Updated By Discont inued [id number] 6817 8937 870 sodium chloride MINI-BAG PLUS 0.9 % 100 ML MBP LITO 100.0 ML INTRAV ENOUS ONE TIME ONLY Start: September 27, 2024 11:53: 00 PM UT End: September 27, 2024 11:53: 00 PM UT DARRYL Bennett MD [facility] on September 27, 2024 11:53:00 PM UT Discont inued 7083640 7471 9733 201 cefTRIAXone (ROCEPHIN) 1 GM SOLR 1.0 GM ONE TIME ONLY Start: September 27, 2024 11:55: 00 PM UTC End: September 27, 2024 11:55: 00 PM UT DARRYL Bennett MD [facility] on September 27, 2024 11:53:00 PM UT Discont inued 5044178 5079 3028 803 METHYLPREDN ISOLONE SODIUM SUCC 125 MG SOLR 125.0 MG INTRAV ENOUS ONE TIME ONLY Start: September 27, 2024 11:55: 00 PM UTC End: September 27, 2024 11:55: 00 PM UT DARRYL Bennett MD [facility] on September 27, 2024 11:53:00 PM UT Discont inued 5407394 4346 3032 810 azithromyci n (ZITHROMAX) 500 MG SOLR 500.0 MG INTRAV ENOUS ONE TIME ONLY Start: September 27, 2024 11:55: 00 PM UTC End: September 27, 2024 11:55: 00 PM UT DARRYL Bennett MD [facility] on September 27, 2024 11:53:00 PM UTC Discont inued Free Text Med warfarin 5 mg tablet 1.0 TAB ORAL ONCE DAILY Start: September 28, 2024 1:00:0 0 PM UTC End: September 28, 2024 1:00:0 0 PM UTC FURNISH RADHA HUNG on September 28, 2024 2:56:00 AM UTC Discont inued Free Text Med atorvastati n 20 mg tablet 1.0 TAB ORAL AT BEDTIME Start: September 29, 2024 1:00:0 0 AM UTC End: September 28, 2024 7:10:0 0 PM UTC FURNISH RADHA HUNG on September 28, 2024 2:53:00 AM UTC Discont inued Free Text Med metoprolol succinate 100 mg Tablet, Extended Release 24 hr 1.0 TAB ORAL ONCE DAILY Start: September 28, 2024 1:00:0 0 PM UTC End: September 28, 2024 1:00:0 0 PM UTC FURNISH RADHA HUNG on September 28, 2024 2:52:00 AM UTC Discont inued 544746 4212 7048 811 amLODIPine (NORVASC) 5 MG TABS 5.0 MG ORAL ONCE DAILY Start: September 28, 2024 1:00:0 0 PM UTC End: September 28, 2024 7:10:0 0 PM UTC FURNISH RADHA BLANC [id number] on September 29, 2024 4:25:00 AM UTC Discont inued 0888 1570 121 MONOJECT FLUSH SYRINGE 0.9 % SOLN 10.0 ML INTRAV ENOUS TWICE A DAY Start: September 28, 2024 1:00:0 0 PM UTC End: September 28, 2024 2:47:1 3 PM UTC FURNISH RADHA BLANC [id number] on September 29, 2024 4:25:00 AM UTC Discont inued 0888 1570 121 MONOJECT FLUSH SYRINGE 0.9 % SOLN 10.0 ML INTRAV ENOUS NEEDED Start: September 28, 2024 2:39:0 0 AM UTC End: September 28, 2024 2:47:1 3 PM UTC FURNISH RADHA BLANC [id number] on September 29, 2024 4:25:00 AM UTC Discont inued 922943 3013 3061 400 hydrALAZINE (APRESOLINE ) 20 MG/ML SOLN 20.0 MG INTRAV ENOUS EVERY FOUR HOURS NEEDED Start: September 28, 2024 2:39:0 0 AM UTC End: September 28, 2024 2:47:1 3 PM UTC FURNISH RADHA BLANC [id number] on September 29, 2024 4:25:00 AM UTC Discont inued 0879646 0899 9230 934 LABETALOL 5 MG/ML SOLN 10.0 MG INTRAV ENOUS EVERY TWO HOURS NEEDED Start: September 28, 2024 2:39:0 0 AM UTC End: September 28, 2024 2:47:1 3 PM UTC FURNISH RADHA BLANC [id number] on September 29, 2024 4:25:00 AM UTC Discont inued 0012 1176 130 MAG-AL PLUS 200-200-20 MG/5 ML LIQD 30.0 ML ORAL EVERY SIX HOURS NEEDED Start: September 28, 2024 2:39:0 0 AM UTC End: September 28, 2024 2:47:1 3 PM UTC FURNISH RADHA BLANC [id number] on September 29, 2024 4:25:00 AM UTC Discont inued 790378 4548 4677 361 ACETAMINOPH EN 325 MG TABS 650.0 MG ORAL EVERY SIX HOURS NEEDED Start: September 28, 2024 2:39:0 0 AM UTC End: September 28, 2024 2:47:1 3 PM UTC FURNISH RADHA BLANC [id number] on September 29, 2024 4:25:00 AM UTC Discont inued 335938 3328 4089 511 NORCO 5-325 MG TABS 1.0 TAB ORAL EVERY SIX HOURS NEEDED Start: September 28, 2024 2:39:0 0 AM UTC End: September 28, 2024 2:47:1 3 PM UTC FURNISH RADHA BLANC [id number] on September 29, 2024 4:25:00 AM UTC Discont inued 282231 8438 1001 406 melatonin 3 MG TABS 3.0 MG ORAL AT BEDTIME NEEDED Start: September 28, 2024 2:39:0 0 AM UTC End: September 28, 2024 2:47:1 3 PM UTC FURNISH RADHA BLANC [id number] on September 29, 2024 4:25:00 AM UTC Discont inued 278209 2018 4677 361 ACETAMINOPH EN 325 MG TABS 650.0 MG ORAL EVERY SIX HOURS NEEDED Start: September 28, 2024 2:39:0 0 AM UTC End: September 28, 2024 2:47:1 3 PM UTC FURNISH RADHA BLANC [id number] on September 29, 2024 4:25:00 AM UTC Discont inued 778244 5582 7073 601 pantoprazol e (PROTONIX) 40 MG TBEC 40.0 MG ORAL ONCE DAILY Start: September 28, 2024 1:00:0 0 PM UTC End: September 28, 2024 2:47:1 3 PM UTC FURNISH RADHA BLANC [id number] on September 29, 2024 4:25:00 AM UTC Discont inued 082337 4465 3025 503 METHYLPREDN ISOLONE SODIUM SUCC 40 MG SOLR 40.0 MG INTRAV ENOUS TWICE A DAY Start: September 28, 2024 1:00:0 0 PM UTC End: September 28, 2024 2:47:1 3 PM UTC FURNISH RADHA BLANC [id number] on September 29, 2024 4:25:00 AM UTC Discont inued 1237064 4451 7020 101 DUONEB 0.5-2.5 MG/3 ML SOLN 1.0 NEB INHALE D EVERY SIX HOURS Start: September 28, 2024 4:00:0 0 AM UTC End: September 28, 2024 4:00:0 0 AM UTC FURNISH RADHA BLANC KWAID on September 28, 2024 2:51:00 AM UTC Discont inued 417065 1803 7950 101 albuterol (VENTOLIN) (2.5 MG/3ML) 0.083% NEBU 2.5 MG INHALE D EVERY FOUR HOURS NEEDED (RESPIRATO RY) Start: September 28, 2024 2:39:0 0 AM UTC End: September 28, 2024 2:47:1 3 PM UTC FURNISH RADHA BLANC [id number] on September 29, 2024 4:25:00 AM UTC Discont inued 1331571 9284 9475 503 ondansetron (ZOFRAN) 4 MG/2ML SOLN 4.0 MG INTRAV ENOUS EVERY EIGHT HOURS NEEDED Start: September 28, 2024 2:39:0 0 AM UTC End: September 28, 2024 2:47:1 3 PM UTC FURNISH RADHA JOSEP [id number] on September 29, 2024 4:25:00 AM UTC Discont inued 477386 4781 6024 064 ondansetron (ZOFRAN) 4 MG TBDP 4.0 MG SUBLIN GUAL EVERY EIGHT HOURS NEEDED Start: September 28, 2024 2:39:0 0 AM UTC End: September 28, 2024 2:47:1 3 PM UTC FURNISH RADHA JOSEP [id number] on September 29, 2024 4:25:00 AM UTC Discont inued 4062886 6470 3039 810 azithromyci n (ZITHROMAX) 500 MG SOLR 500.0 MG INTRAV ENOUS EVERY 24 HOURS 250.0 ML/HR Start: September 28, 2024 2:47:1 3 PM UTC End: September 28, 2024 2:47:1 3 PM UTC FURNISH RDAHA JOSEP [id number] on September 29, 2024 4:25:00 AM UTC Discont inued 3973389 1166 8004 902 sodium chloride (NS) 0.9 % SOLN 250.0 ML INTRAV ENOUS EVERY 24 HOURS 250.0 ML/HR Start: September 28, 2024 2:47:1 3 PM UTC End: September 28, 2024 2:47:1 3 PM UTC FURNISH RADHA JOSEP [id number] on September 29, 2024 4:25:00 AM UTC Discont inued 8085050 6316 9733 201 cefTRIAXone (ROCEPHIN) 1 GM SOLR 1.0 GM INTRAV ENOUS EVERY 24 HOURS 200.0 ML/HR Start: September 28, 2024 2:47:1 3 PM UTC End: September 28, 2024 2:47:1 3 PM UTC FURNISH RADHA JOSEP [id number] on September 29, 2024 4:25:00 AM UTC Discont inued 0895711 2187 8915 930 sodium chloride MINI-BAG PLUS 0.9 % 100 ML MBP LITO 100.0 ML INTRAV ENOUS EVERY 24 HOURS 200.0 ML/HR Start: September 28, 2024 2:47:1 3 PM UTC End: September 28, 2024 2:47:1 3 PM UTC FURNISH RADHA JOSEP [id number] on September 29, 2024 4:25:00 AM UTC Discont inued 1695036 5044 7020 101 DUONEB 0.5-2.5 MG/3 ML SOLN 1.0 NEB INHALE D EVERY SIX HOURS (RESPIRATO RY) Start: September 28, 2024 5:00:0 0 AM UTC End: September 28, 2024 2:47:1 3 PM UTC FURNISH RADHA JOSEP [id number] on September 29, 2024 4:25:00 AM UTC Discont inued 152618 2232 7040 211 metoprolol succinate 50MG TB24 50 MG TB24 100.0 MG ORAL ONCE DAILY Start: September 28, 2024 1:00:0 0 PM UTC End: September 28, 2024 2:47:1 3 PM UTC FURNISH RADHA JOSEP [id number] on September 29, 2024 4:25:00 AM UTC Discont inued 155448 6417 1015 540 atorvastati n calcium (LIPITOR) 10 MG TABS 20.0 MG ORAL AT BEDTIME Start: September 28, 2024 2:47:1 3 PM UTC End: September 28, 2024 2:47:1 3 PM UTC FURNISH RADHA JOSEP [id number] on September 29, 2024 4:25:00 AM UTC Discont inued 257772 0581 4002 711 WARFARIN SODIUM 2.5 MG TABS 5.0 MG ORAL ONCE DAILY (COUMADIN) Start: September 28, 2024 2:47:1 3 PM UTC End: September 28, 2024 2:47:1 3 PM UTC FURNISH RADHA JOSEP [id number] on September 29, 2024 4:25:00 AM UTC Discont inued 701207 9151 8096 592 ENOXAPARIN SODIUM 80 MG/0.8ML SOSY 80.0 MG SUBCUT ANEOUS ONE TIME ONLY Start: September 28, 2024 2:59:0 0 AM UTC End: September 28, 2024 3:10:0 3 AM UTC FURNLIZZY BLANC KWAID on September 28, 2024 3:10:00 AM UTC Discont inued 861506 5862 8043 592 ENOXAPARIN SODIUM 80 MG/0.8ML SOSY 80.0 MG SUBCUT ANEOUS NOW Start: September 28, 2024 3:10:0 0 AM UTC End: September 28, 2024 3:48:3 9 AM UTC FURNLIZZY BLANC [id number] on September 28, 2024 3:48:00 AM UTC Discont inued 3107128 3600 0028 225 furosemide 20 MG SOLN 20.0 MG INTRAV ENOUS NOW Start: September 28, 2024 4:46:0 0 AM UTC End: September 28, 2024 4:59:4 4 AM UTC FURNLIZZY BLANC [id number] on September 28, 2024 4:59:00 AM UTC Discont inued 9587539 5120 8004 904 normal saline (NS) 0.9 % SOLN 1000. 0 ML INTRAV ENOUS CONT 999.0 ML/HR Start: September 28, 2024 2:42:0 0 PM UTC End: September 28, 2024 2:47:1 3 PM UTC [facility]-ORT EZ NEY [id number] on September 29, 2024 4:25:00 AM UTC Discont inued 494582 2250 3025 503 METHYLPREDN ISOLONE SODIUM SUCC 40 MG SOLR 40.0 MG INTRAV ENOUS ONE TIME ADMINISTRA TION (UNSCHEDUL ED) Start: September 28, 2024 2:44:0 0 PM UTC End: September 28, 2024 2:47:1 3 PM UTC [facility]-ORT EZ NEY [id number] on September 28, 2024 3:26:00 PM UTC Discont inued XXXX XXX0 063 *PATIENT INFORMATION MISC 1.0 EA SEE COMMEN TS NEEDED Start: September 28, 2024 6:51:0 0 PM UTC End: September 28, 2024 7:10:0 0 PM UTC [facility]-ORT EZ NEY [id number] on September 29, 2024 4:25:00 AM UTC SOCIAL HISTORY SOCIAL HISTORY SNOMED-CT Social History Element Description Effective Dates Offered Cessation Comment UpdatedBy [id number] Current Tobacco smoking status Former Smoker [id number] on September 27, 2024 11:19:58 PM UTC SOCIAL HISTORY - Gender Sex: Male SOCIAL HISTORY - Status : status i nformation is not available Intention in Next Year: intention information is not available SOCIAL HISTORY - Sexual Behavior Sexual Orientation Gender Identity SNOMED-CT Description SNO MED -CT Description Activity Level No of Partners Partner Type UpdatedBy Information is not available VITAL SIGNS PATIENT VITAL SIGNS This section displays the mo st recent value for each vital sign as of September 30, 2024 7:25:24 PM [place] Loinc Code Vital Sign Activity Date Result Updated By 8302-2 Body height September 28, 2024 2:22:51 AM UTC 180.34 cm (71.0 in) [id number] on September 28, 2024 2:22:[place] [address]-7 Body mass index (BMI ) [Ratio] September 28, 2024 2:22:51 AM UTC 26.535 kg/m2 [id number] on September 28, 2024 2:22:51 AM UT 3140-1 Body Surface Area Derived From Formula September 28, 2024 2:22:51 AM UTC 2.0646 m2 [id number] on September 28, 2024 2:22:51 AM UT 8310-5 Body temperature September 28, 2024 3:16:00 PM UTC 97.4 [degF] [id number] on September 28, 2024 3:16:[place] [address]-1 Body weight Measured September 28 2:22:51 AM UTC 88.7 kg (196.0 lb) [id number] on September 28, 2024 2:22:51 AM UTC 8462-4 Diastolic blood pressure September 28, 2024 3:16:00 PM UTC 68.0 mm[Hg] [id number] on September 28, 2024 3:16:51 PM UT 8867-4 Heart rate September 28, 2024 5:18:00 PM UTC 76 /min [id number] on September 28, 2024 5:50:50 PM UTC 12212-1 Oxygen saturation in Arterial blood by Pulse oximetry September 28, 2024 5:18:00 PM UT 95.0 % [id number] on September 28, 2024 5:50:50 PM [facility] 9279-1 Respiratory rate September 28, 2024 3:16:00 PM UT 18 /min [id number] on September 28, 2024 3:16:51 PM [facility] 37717-5 Spirometry panel September 28, 2024 11:23:00 AM UT 6.0 {score} [id number] on September 28, 2024 12:14:02 PM UT 8480-6 Systolic blood pressure September 28, 2024 3:16:00 PM UT 132.0 mm[Hg] [id number] on September 28, 2024 3:16:51 PM [facility] PEDIATRIC GROWTH CHART - VITAL SIGNS This section displays Head C ircumference Percentile, Weight for Length Percentile and BMI Percentile Loinc Code Pediatric Measure Age (Months) Result Updat ed By No Pediatric Growth Chart Pe rcentile Information Available. HEALTH CONCERNS Problems Concern Status Health Concern problem infor mation not available. Smoking Status Status Years Used Consumed packs p er day Health Concern smoking histo ry information not available. Family History Concern Status Health Concern family histor y information not available. ENCOUNTERS ENCOUNTER INFORMATION Reason for Visit PNEUMONIA, UNSPECIFI ED ORGANISM Admission September 27, 2024 11:02:[address] [address] Discharge September 28, 2024 7:10:00 PM UT DISC HARGED TO HOME OR SELF CARE ENCOUNTER DIAGNOSES Note Title Short Stay Summary Date Of Service September 28, 2024 5:40:56 PM UT Created By [id number] on September 28 5:40:56 PM UT Signed By [id number] on September 28 6:52:48 PM UT Code System Diagnosis Onset Date [id number] SNOMED-CT Pneumonia ABSTRACT DIAGNOSES Code System Diagnosis Updated By R06.02 ICD10 SHORTNESS OF BREATH [id number] on September 30, 2024 7:25:02 PM [facility] R06.00 ICD10 DYSPNEA, UNSPECIFIED [id number] on September 30, 2024 7:25:03 PM [facility] I48.91 ICD10 UNSPECIFIED ATRIAL FIBRILLAT ION [id number] on September 30, 2024 7:25:03 PM UT I10 ICD10 ESSENTIAL (PRIMARY) HYPERTEN JACQUELINE [id number] on September 30, 2024 7:25:03 PM [facility] I25.10 ICD10 ATHEROSCLEROTIC HEART DISEASE OF [place] CORONARY ARTERY WITHOUT ANGINA PECTORIS [id number] on September 30, 2024 7:25:03 PM [facility] Z87.891 ICD10 PERSONAL HISTORY OF NICOTINE DEPENDENCE [id number] on September 30, 2024 7:25:03 PM [facility] Z79.899 ICD10 OTHER WOOL BROKER (CURRENT) DR BO THERAPY [id number] on September 30, 2024 7:25:03 PM [facility] Z79.01 ICD10 WOOL BROKER (CURRE NT) USE OF ANTICOAGULANTS [id number] on September 30, 2024 7:25:03 PM [facility] Z11.52 ICD10 ENCOUNTER FOR SCREENING FOR COVID-19 [id number] on September 30, 2024 7:25:03 PM [facility] CARE TEAM Care Electrical High Tension Tester Role NEY WEBB Primary Attending NEY WEBB Admitting [facility] INSTRUCTION DISCHARGE INSTRUCTION Encounter [id number] Admit Date September 27, 2024 11:02:0 0 PM [facility] Discharge Date September 28, 2024 7:10:00 PM [facility] PATIENT EDUCATION SUMMARY Patient/Visit Information: Patient Name: ELIA SANTILLAN Diag: Attending Caregiver: JON BREWSTER Discharge Instruction Sheets Provided: * BRBN Stroke && BEFAST Education *[facility] Patient [facility] *BR[facility] Social Determinants of Health *BRBN Suicidal Feelings: How to Help Yourself (LPNT) () Community-Acquired Pneumonia, Adult, Lodl-qg-Xwyx Smoking\Tobacco Cessation - [facility] () () Patient Instructions: Additional Notes for * BRBN Stroke && BEFAST Education Take medications as prescribed. Follow up with PCP within 7 days. Return to ED for any new or worsening symptoms. 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 and repairer Role on Team Status Start Date End Date Update d By JON BREWSTER Referring normal September 28 12:24:26 AM [facility] September 27, 2024 4:00:00 AM UTC [id number] on September 28, 2024 12:24:26 AM UTC JON BREWSTER Attending normal September 28 12:24:26 AM UTC September 27, 2024 4:00:00 AM UTC [id number] on September 28, 2024 12:24:26 AM UTC JON BREWSTER Admitting normal September 28 12:24:26 AM UTC September 27, 2024 4:00:00 AM UTC [id number] on September 28, 2024 12:24:26 AM UTC SLY WILEY MD PCP normal September 27, 2024 11:47:21 PM UTC September 27, 2024 4:00:00 AM UTC [id number] on September 28, 2024 12:24:26 AM UTC DARRYL Bennett MD Referring normal September 27 11:47:21 PM UTC September 28, 2024 12:24:26 AM UTC [id number] on September 28, 2024 12:24:26 AM UTC DARRYL Bennett MD Attending normal September 27 11:47:21 PM UTC September 28, 2024 12:24:26 AM UTC [id number] on September 28, 2024 12:24:26 AM UTC DARRYL Bennett MD Admitting normal September 27 11:47:21 PM UTC September 28, 2024 12:24:26 AM UTC [id number] on September 28, 2024 12:24:26 AM UTC DECLINED PCP PCP normal September 27, 2024 11:02:38 PM UTC September 27, 2024 11:47:21 PM UTC [id number] on September 28, 2024 12:24:26 AM UTC
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
--- NOTE | 2024-09-30 19:36 | CT_ITS ---
PROCEDURE INFORMATION: Exam: CTA Chest With Contrast Exam date and time: 09/30/2024 7:54 PM Age: 79 years old Clinical indication: Injury or trauma; Additional info: Acute abd pain hypotensive after fall, h/o aortic TECHNIQUE: Imaging protocol: Computed tomographic angiography of the chest with contrast. Exam focused on the arteries. 3D rendering (Not supervised by radiologist): MIP and/or 3D reconstructed images were created by the technologist. Radiation optimization: All CT scans at this facility use at least one of these dose optimization techniques: automated exposure control; mA and/or kV adjustment per patient size (includes targeted exams where dose is matched to clinical indication); or iterative reconstruction. Contrast material: ISOVUE; Contrast volume: 80 ml; Contrast route: INTRAVENOUS (IV); COMPARISON: CT ANGIO ABD/PEL - TRAUMA 09/30/2024 7:54 PM FINDINGS: Pulmonary arteries: No large central pulmonary emboli. Small branch assessment limited by motion. Aorta: Moderate-severe aortic ectasia/tortuosity with borderline aneurysmal dilatation of the ascending segment measuring 4.0 cm diameter, and mild diffuse aneurysmal dilatation of the descending segment measuring up to 3.6 cm diameter. No dissection. No mediastinal hematoma. Thyroid: The visualized thyroid gland demonstrates no gross abnormality. Lungs: No acute tracheobronchial abnormalities. Patchy alveolar opacities in the basilar lower lobes, right middle lobe, and lingula, probably subsegmental atelectasis although patchy basilar infiltrates are not excluded. Nodular densities in the lingula most likely representing nodular atelectasis, largest 13 mm, although true pulmonary nodule is not fully excluded at this point. For patients at low risk (minimal or absent history of smoking and of other known risk factors), recommend CT at 3-6 months, then consider CT at 18-24 months. For patients at high risk (history of smoking or of other known risk factors), recommend CT at 3-6 months, then CT at 18-24 months. (Ramirez et al., Fleischner Society, 2017). Pleural spaces: No pleural effusion. No pneumothorax. Heart: Mild-moderate cardiomegaly. No pericardial effusion. Coronary arteries: Moderate coronary artery calcification. Esophagus: The esophagus is largely contracted but demonstrates no gross abnormality. Lymph nodes: No supraclavicular or axillary adenopathy. No mediastinal or hilar adenopathy. Bones/joints: Cardiac pacemaker without gross hardware complication. No acute osseous abnormalities. Osteopenia. There are few chronic right anterior rib fractures and a few chronic left anterior rib fractures. Mild thoracic spondylosis. Moderate anterior wedge compression deformity of T9 with no paraspinous swelling or acute fracture lines, favoring chronic compression fracture. Soft tissues: 17 mm asymmetric retroareolar nodule in the left anterior chest wall, possibly asymmetric gynecomastia although correlate clinically for palpable lesion, consider nonemergent mammographic assessment if clinically indicated. IMPRESSION: 1. No definite acute thoracic process is evident. 2. Mild aneurysmal dilatation of the thoracic aorta with no evidence of dissection or rupture. 3. Mild cardiomegaly with moderate coronary artery calcification. 4. Patchy alveolar opacities in the lung bases, probably subsegmental atelectasis although patchy basilar infiltrates are not excluded. 5. Nodular densities in the lingula of the left upper lobe, most likely nodular atelectasis although not definitive. Please see follow-up recommendations above. 6. 17 mm ovoid left-sided retroareolar nodule, potentially asymmetric gynecomastia although nonspecific. Correlate clinically for palpable lesion, consider nonemergent mammographic characterization if clinically indicated. 7. Additional nonemergent findings detailed above.
--- NOTE | 2024-09-30 19:45 | CT_ITS ---
PROCEDURE INFORMATION: Exam: CTA Abdomen and Pelvis With Contrast Exam date and time: 09/30/2024 7:54 PM Age: 79 years old Clinical indication: Injury or trauma; Additional info: Trauma, critical injury suspected TECHNIQUE: Imaging protocol: Computed tomographic angiography of the abdomen and pelvis with contrast. Exam focused on the arteries. 3D rendering (Not supervised by radiologist): MIP and/or 3D reconstructed images were created by the technologist. Radiation optimization: All CT scans at this facility use at least one of these dose optimization techniques: automated exposure control; mA and/or kV adjustment per patient size (includes targeted exams where dose is matched to clinical indication); or iterative reconstruction. Contrast material: ISOVUE; Contrast volume: 80 ml; Contrast route: INTRAVENOUS (IV); COMPARISON: US TESTICULAR 04/24/2024 9:23 AM FINDINGS: Esophagus: The visualized distal esophagus is largely contracted without gross abnormality. Aorta: Abdominal aorta demonstrates a large fusiform infrarenal aneurysm measuring up to 8.7 cm transverse by 8.1 cm AP, which begins immediately below the renal arteries and extends to the bifurcation although there is no iliac extension. There is large volume surrounding hyperdense acute appearing retroperitoneal hemorrhage consistent with aneurysm rupture. There is no contrast extravasation currently to suggest active hemorrhage at this time. 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 Celiac artery and its major branch vessels are unremarkable. Renal arteries: Right renal artery demonstrates severe ostial/post ostial calcific plaque with suspected high-grade stenosis. Chronic left renal artery demonstrates moderate-severe ostial/post ostial calcific plaque with moderate-severe 70% post ostial stenosis. Right iliac arteries: No occlusion or significant stenosis. Left iliac arteries: No occlusion or significant stenosis. Other arteries: Moderate-severe calcific atherosclerosis. Liver: Granulomatous calcifications in the liver. Normal contour. No mass lesions. No intrahepatic biliary ductal dilatation. Gallbladder and biliary ducts: Question sludge or noncalcified stones in the gallbladder with no evidence of cholecystitis. Nondilated bile ducts. Pancreas: Pancreas is displaced anteriorly by the retroperitoneal hemorrhage, with no intrinsic abnormality. No gross changes of pancreatitis. No ductal dilatation. Spleen: Normal. No splenomegaly. Adrenal glands: Normal. No adrenal mass. Kidneys and ureters: Chronic right renal cortical atrophy, probably relate to chronic renal artery stenosis. Mild compensatory enlargement of the left kidney without acute abnormality. No hydronephrosis or hydroureter. No urinary tract stones are identified. Stomach and bowel: The stomach contains moderate food content but is otherwise unremarkable. The small bowel is nondilated with no gross abnormality. No acute colonic abnormalities. Mild distal colonic diverticulosis without diverticulitis. Appendix: The appendix is normal in caliber and demonstrates no evidence of appendicitis. Intraperitoneal space: Complex fluid in the left hemipelvis is likely extension of retroperitoneal hemorrhage into the sigmoid mesentery. No definite intraperitoneal hemorrhage is identified. No free air. Lymph nodes: No adenopathy. Urinary bladder: Unremarkable as visualized. Reproductive: Unremarkable as visualized. Bones/joints: Osteopenia. Moderate superior endplate compression deformity of L5 and mild compression deformities involving the L4 superior and inferior endplates, L3 superior endplate, and L2 superior endplate which demonstrate chronic CT features. Leftward convexity lower lumbar scoliosis with multilevel moderate disc osteoarthritic changes. Soft tissues: Small fatty left inguinal hernia with no associated bowel herniation or evidence of strangulation.. IMPRESSION: 1. Ruptured abdominal aortic aneurysm detailed above, with large volume retroperitoneal hemorrhage. No evidence of active bleed currently. 2. 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 3. High-grade stenosis or chronic occlusion of the post ostial right renal artery with marked right renal cortical atrophy. 4. Moderate-severe 70% post ostial stenosis of the left main renal artery. 5. Additional nonemergent findings detailed above. 6. THIS REPORT CONTAINS FINDINGS THAT MAY BE CRITICAL TO PATIENT CARE. The findings were verbally communicated via telephone conference with Snow Crowley at 8:38 p.m. EDT on 09/30/2024. The findings were acknowledged and understood.
--- NOTE | 2024-09-30 19:46 | ECG_ITS ---
APPROVED REPORT Exam: Resting ECG HR:69 bpm ECG Measurements Heart Rate 69 AXES QRSd 101 QRS -7 QT 412 T -1 QTc 432 Conclusion Paced with a rate of 69 bpm. No STEMI Electronically signed by : CHANTELL RED, 09/30/2024 23:34:45
--- NOTE | 2024-09-30 19:56 | CT_ITS ---
PROCEDURE INFORMATION: Exam: CT Pelvis Without Contrast, Skeleton Exam date and time: 09/30/2024 8:11 PM Age: 79 years old Clinical indication: Injury or trauma; Additional info: Trauma, critical injury suspected TECHNIQUE: Imaging protocol: Computed tomography of the pelvis without contrast. Exam focused on the skeleton. Radiation optimization: All CT scans at this facility use at least one of these dose optimization techniques: automated exposure control; mA and/or kV adjustment per patient size (includes targeted exams where dose is matched to clinical indication); or iterative reconstruction. COMPARISON: CT ANGIO ABD/PEL - TRAUMA 09/30/2024 7:54 PM FINDINGS: Vasculature: Ruptured abdominal aortic aneurysm with extensive retroperitoneal hemorrhage again noted, please see abdomen/pelvic CT angiogram for details. Bones/joints: Osteopenia. No fracture or malalignment. Mild osteoarthritic spurring and sclerosis in the SI joints. Pubic symphysis is unremarkable. Soft tissues: Small fatty left inguinal hernia with no associated bowel herniation or evidence of strangulation.. IMPRESSION: 1. No fracture of the pelvis or hips. 2. Ruptured abdominal aortic aneurysm with large volume retroperitoneal hemorrhage again noted, please see abdomen/pelvic CT angiogram report for details.
--- NOTE | 2024-09-30 19:56 | CT_ITS ---
PROCEDURE INFORMATION: Exam: CTA Head With Contrast, Arteriography Exam date and time: 09/30/2024 8:16 PM Age: 79 years old Clinical indication: Injury or trauma; Additional info: Trauma, critical injury suspected TECHNIQUE: Imaging protocol: Computed tomographic angiography of the head with contrast. Exam focused on the arteries. 3D rendering (Not supervised by radiologist): MIP and/or 3D reconstructed images were created by the technologist. Radiation optimization: All CT scans at this facility use at least one of these dose optimization techniques: automated exposure control; mA and/or kV adjustment per patient size (includes targeted exams where dose is matched to clinical indication); or iterative reconstruction. Contrast material: ISOVUE; Contrast volume: 80 ml; Contrast route: INTRAVENOUS (IV); COMPARISON: CT HEAD/BRAIN WO CON 09/30/2024 8:03 PM FINDINGS: ANTERIOR CIRCULATION: Right internal carotid artery: Moderate mixed calcific and noncalcified atherosclerotic disease of the right intracranial ICA resulting in moderate stenosis of the cavernous segment. Right middle cerebral artery: No occlusion or significant stenosis. No aneurysm. Right anterior cerebral artery: No occlusion or significant stenosis. No aneurysm. Left internal carotid artery: Moderate mixed calcific and noncalcified atherosclerotic disease of the left intracranial ICA resulting in moderate stenosis of the ophthalmic segment. Left middle cerebral artery: No occlusion or significant stenosis. No aneurysm. Left anterior cerebral artery: No occlusion or significant stenosis. No aneurysm. POSTERIOR CIRCULATION: Right vertebral artery: No occlusion or significant stenosis. No aneurysm. Left vertebral artery: No occlusion or significant stenosis. No aneurysm. Basilar artery: No occlusion or significant stenosis. No aneurysm. Right posterior cerebral artery: No occlusion or significant stenosis. No aneurysm. Left posterior cerebral artery: No occlusion or significant stenosis. No aneurysm. Brain: No definite mass, mass effect, or midline shift. Cerebral ventricles: No ventriculomegaly. Bones/joints: Unremarkable. No acute fracture. Soft tissues: Unremarkable. IMPRESSION: 1. Moderate mixed calcific and noncalcified atherosclerotic disease of the right intracranial ICA resulting in moderate stenosis of the cavernous segment. 2. Moderate mixed calcific and noncalcified atherosclerotic disease of the left intracranial ICA resulting in moderate stenosis of the ophthalmic segment.
--- NOTE | 2024-09-30 19:56 | CT_ITS ---
PROCEDURE INFORMATION: Exam: CT Head Without Contrast Exam date and time: 09/30/2024 8:03 PM Age: 79 years old Clinical indication: Injury or trauma; Additional info: Trauma, critical injury suspected TECHNIQUE: Imaging protocol: Computed tomography of the head without contrast. Radiation optimization: All CT scans at this facility use at least one of these dose optimization techniques: automated exposure control; mA and/or kV adjustment per patient size (includes targeted exams where dose is matched to clinical indication); or iterative reconstruction. COMPARISON: US THYROID 01/10/2023 8:52 AM FINDINGS: Brain: Normal. No hemorrhage. Unremarkable white matter. No mass effect. Cerebral ventricles: No ventriculomegaly. Paranasal sinuses: Mild bilateral maxillary sinus disease. Mastoid air cells: Visualized mastoid air cells are well aerated. Bones: Unremarkable. No acute fracture. Soft tissues: Unremarkable. IMPRESSION: No acute intracranial abnormality.
--- NOTE | 2024-09-30 19:56 | CT_ITS ---
PROCEDURE INFORMATION: Exam: CT Cervical Spine Without Contrast Exam date and time: 09/30/2024 8:05 PM Age: 79 years old Clinical indication: Injury or trauma; Additional info: Trauma, critical injury suspected TECHNIQUE: Imaging protocol: Computed tomography of the cervical spine without contrast. Radiation optimization: All CT scans at this facility use at least one of these dose optimization techniques: automated exposure control; mA and/or kV adjustment per patient size (includes targeted exams where dose is matched to clinical indication); or iterative reconstruction. COMPARISON: CT CERVICAL SPINE WO CON 09/30/2024 8:05 PM FINDINGS: Bones: No acute fracture. Normal alignment. Moderate disc space narrowing at C3-C4, C4-C5 and C5-C6. Mild disc space narrowing at C6-C7. No significant disc bulge or herniation. No severe spinal canal stenosis. Mild right-sided bony foraminal stenosis at C3-C4. Mild bilateral bony foraminal stenosis at C4-C5, C5-C6 and C6-C7. Lungs: No acute findings at the lung apices. Soft tissues: Unremarkable. IMPRESSION: No acute findings.
--- NOTE | 2024-09-30 19:56 | CT_ITS ---
PROCEDURE INFORMATION: Exam: CT Thoracic Spine Without Contrast Exam date and time: 09/30/2024 8:06 PM Age: 79 years old Clinical indication: Injury or trauma; Additional info: Trauma, critical injury suspected TECHNIQUE: Imaging protocol: Computed tomography of the thoracic spine without contrast. Radiation optimization: All CT scans at this facility use at least one of these dose optimization techniques: automated exposure control; mA and/or kV adjustment per patient size (includes targeted exams where dose is matched to clinical indication); or iterative reconstruction. COMPARISON: CT THORACIC SPINE WO CON 09/30/2024 8:06 PM FINDINGS: Bones/joints: Osteopenia. Moderate 60% anterior wedge compression deformity involving the T9 inferior endplate with no acute fracture lines or paraspinous swelling, favoring chronic compression fracture. No retropulsion or hematoma. Mild thoracic spondylosis. No canal stenosis. Moderate-severe right foraminal stenosis C7-T1. Soft tissues: See Bones/joints finding. Other findings: Please see chest CT report regarding intrathoracic findings. IMPRESSION: 1. No acute thoracic spine fractures or traumatic subluxation. 2. Moderate chronic T9 compression fracture. 3. Osteopenia and osteoarthritic changes.
--- NOTE | 2024-09-30 19:56 | CT_ITS ---
PROCEDURE INFORMATION: Exam: CT Lumbar Spine Without Contrast Exam date and time: 09/30/2024 8:09 PM Age: 79 years old Clinical indication: Injury or trauma; Additional info: Trauma, critical injury suspected TECHNIQUE: Imaging protocol: Computed tomography of the lumbar spine without contrast. Radiation optimization: All CT scans at this facility use at least one of these dose optimization techniques: automated exposure control; mA and/or kV adjustment per patient size (includes targeted exams where dose is matched to clinical indication); or iterative reconstruction. COMPARISON: CT LUMBAR SPINE WO CON 09/30/2024 8:09 PM FINDINGS: Bones/joints: Osteopenia. Moderate superior endplate compression deformity of L5 and mild compression deformities involving the L4 superior and inferior endplates, L3 superior endplate, and L2 superior endplate which demonstrate chronic CT features, with no paraspinous swelling or acute fracture lines visualized. Leftward convexity lower lumbar scoliosis with multilevel moderate disc osteoarthritic changes. Grade 1 anterolisthesis of 6 mm at L4-L5. Moderate-severe canal stenosis and moderate bilateral foraminal stenosis L4-L5. Moderate right foraminal stenosis L3-L4. Vasculature: Ruptured abdominal aortic aneurysm again noted with large volume retroperitoneal hemorrhage, please see abdomen/pelvic CT angiogram for details. Soft tissues: See Bones/joints finding. IMPRESSION: 1. Chronic appearing compression fractures of L2-L5 as detailed above. 2. Osteopenia and osteoarthritic changes grade 1 anterolisthesis at L4-L5 where there is moderate-severe canal stenosis and moderate bilateral foraminal stenosis. Moderate right foraminal stenosis L3-L4. 3. Ruptured abdominal aortic aneurysm again noted, please see abdomen and pelvis CT angiogram for details.
--- NOTE | 2024-09-30 19:56 | CT_ITS ---
PROCEDURE INFORMATION: Exam: CTA Neck With Contrast Exam date and time: 09/30/2024 8:16 PM Age: 79 years old Clinical indication: Injury or trauma; Additional info: Trauma, critical injury suspected TECHNIQUE: Imaging protocol: Computed tomographic angiography of the neck with contrast. Exam focused on the cervical segments of the vasculature. 3D rendering (Not supervised by radiologist): MIP and/or 3D reconstructed images were created by the technologist. Radiation optimization: All CT scans at this facility use at least one of these dose optimization techniques: automated exposure control; mA and/or kV adjustment per patient size (includes targeted exams where dose is matched to clinical indication); or iterative reconstruction. Contrast material: ISOVUE; Contrast volume: 80 ml; Contrast route: INTRAVENOUS (IV); COMPARISON: CT CERVICAL SPINE WO CON 09/30/2024 8:05 PM FINDINGS: Right common carotid artery: Moderate mixed calcific and noncalcified atherosclerotic disease of the right carotid bulb resulting in moderate stenosis of the proximal ICA. Right internal carotid artery: No stenosis of the extracranial segment. No dissection or occlusion. Right external carotid artery: No occlusion or stenosis of the origin. Left common carotid artery: Moderate mixed calcific and noncalcified atherosclerotic disease of the left carotid bulb resulting in moderate stenosis of the proximal left ICA. Left internal carotid artery: See Left common carotid artery finding. Left external carotid artery: No occlusion or stenosis of the origin. Right vertebral artery: Moderate calcific atherosclerotic disease of the right vertebral artery resulting in multi segment moderate stenosis. Moderate calcific atherosclerotic disease of the right vertebral artery resulting in multisegment moderate stenosis Left vertebral artery: No stenosis. No dissection or occlusion. Soft tissues: Normal. No significant soft tissue swelling. Bones/joints: Moderate loss of intervertebral disc space with degenerative changes involving C3 through C6 with uncovertebral joint and facet osteophytosis resulting in moderate bilateral neural foraminal stenosis at these levels. The vertebral bodies are maintained in height and alignment. No evidence of acute osseous abnormality. IMPRESSION: 1. Moderate mixed calcific and noncalcified atherosclerotic disease of the right carotid bulb resulting in moderate stenosis of the proximal ICA. 2. Moderate mixed calcific and noncalcified atherosclerotic disease of the left carotid bulb resulting in moderate stenosis of the proximal left ICA. REFERENCES: NASCET CRITERIA. The degree of stenosis in the cervical segment of the internal carotid artery is based on NASCET criteria. Normal is no stenosis. Mild is less than 50% stenosis. Moderate is 50-69% stenosis. Severe is 70% to 99% stenosis. Total occlusion is no detectable patent lumen.
[2024-09-30 19:57] LABS: Basophils # 0.1 K/mm3 (0-0.2); Basophils % 0.3 % (0.1-2.0); Hemoglobin 8.7 g/dL (14.1-18.0); Immature Granulocytes # 0.82 10^3uL; Lymphocytes # 14.8 K/mm3 (0.7-4.5); Lymphocytes % 36.3 % (10-50); Mean Corpuscular HGB Conc 31.1 g/dL (31.8-35.4); Mean Corpuscular Hemoglobin 27.3 pg (27.0-31.2); Mean Corpuscular Volume 87.8 fl (80-94); Mean Platelet Volume 9.9 fl (7.4-10.4); Monocytes # 9.7 K/mm3 (0.1-1.0); Monocytes % 23.9 % (1.7-9.3); Neutrophils # 15.3 K/mm3 (1.8-7.8); Neutrophils % 37.5 % (37.0-80.0); Nucleated Red Blood Cells # 0 10^3/uL; Nucleated Red Blood Cells % 0 %; Platelet Count 162 K/mm3 (142-424); Red Blood Count 3.19 M/mm3 (4.60-6.20); Red Cell Distribution Width 15.9 % (11.5-17.5); Red Cell Distribution Width-SD 51.1 fL
[2024-09-30 20:07] LABS: White Blood Count 40.8 K/mm3 (4.8-10.8)
[2024-09-30 20:08] LABS: Albumin Level 1.9 g/dl (3.5-5.0); Chloride 109 mmol/L (98-107); MANUAL DIFFERENTIAL MANUAL DIFFERENTIAL (MANUAL DIFF); Potassium 4.1 mmoL/L (3.5-5.1); Sodium 134 mmol/L (136-145); VBG Base Excess -9.3 mmol/L (-2.4-2.3); VBG HCO3 16.7 mmol/L (23-30); VBG Oxygen Saturation 78.5 % (50-70); VBG PCO2 32.8 mmol/L (35-51); VBG PH 7.33 mmol/L (7.31-7.41); VBG PO2 47.6 mmol/L (28-40); VBG Total CO2 17.7 mmol/L (23-27)
[2024-09-30 20:09] LABS: Lactate Venous 4.9 mmol/L (0.4-2.0)
[2024-09-30 20:11] LABS: Alanine Aminotransferase 15 U/L (12-78); Albumin/Globulin Ratio 1.1 (1.1-1.8); Alkaline Phosphatase 46 U/L (38-126); Anion Gap 14.1 mEq/L (5-15); Aspartate Amino Transferase 20 U/L (17-59); Blood Urea Nitrogen 31 mg/dl (9-20); Calcium 7.3 mg/dl (8.4-10.2); Carbon Dioxide 15 mmol/L (22.0-30.0); Creatinine Clearance Estimated 68 mL/min (50-200); Estimated Glomerular Filt Rate 53 ml/min (>60); GFR (African American) 64 ML/MIN (>60); Globulin 1.8 g/dL (1.3-3.2); Glucose 160 mg/dl (74-100); INR 2.96 (0.9-1.1); Prothrombin Time 30.3 seconds (10.1-12.5); Total Protein,Serum 3.7 g/dl (6.3-8.2)
--- NOTE | 2024-09-30 20:21 | PC.NURSE ---
[facility] called for transfer, will call back LAURA.
[2024-09-30 20:24] LABS: Creatine Kinase 72 U/L (55-170)
[2024-09-30 20:26] LABS: Bilirubin,Total < 0.1 mg/dl (0.2-1.3); Lactic Acid 4.6 mmol/L (0.7-2.1)
[2024-09-30 20:30] LABS: C-Reactive Protein 2.9 mg/L (0-4)
[2024-09-30 20:30] LABS: D-Dimer 6.06 ug/mL (0.0-0.5)
[2024-09-30] MEDS: 0.9 % SODIUM CHLORIDE 50 ML VIAL 100 ML IV (20:32)
[2024-09-30] MEDS: SODIUM CHLORIDE 0.9% 10ML SYR (RAD ONLY) 10 ML IV (20:33)
[2024-09-30] MEDS: IOPAMIDOL-370 (76%);100ML BOTTLE 160 ML IV (20:33)
[2024-09-30 20:34] LABS: NT Pro Brain Natriuretic Pep. 10500 pg/mL (0-450)
[2024-09-30 20:38] LABS: Troponin I 0.02 ng/ml (0.00-0.034)
[2024-09-30 20:39] LABS: Lymphocytes % 54 % (10-50); Monocytes % 8 % (2-9); Neutrophils % 38 % (42-76); Total Cells Counted 100
[2024-09-30 20:42] LABS: Erythrocyte Sedimentation Rate 11 mm/hr (0-20); Procalcitonin 0.086 ng/mL (0.0-2.0)
[2024-09-30 20:45] LABS: Coronavirus 19, PCR Not Detected (NotDetected); Influenza A, PCR Not Detected (NotDetected); Influenza B, PCR Not Detected (NotDetected)
[2024-09-30 20:51] LABS: Appearance,Urine CLEAR (Clear); Bilirubin,Urine Negative (Negative); Blood, Urine TRACE-L (Negative); Color,Urine YELLOW (Yellow); Glucose,Urine (UA) Negative (Negative); Ketones,Urine Negative (Negative); Leukocyte Esterase,Urine Negative (Negative); Microscopic, Urine URINE MICROSCOPIC (MICROSCOPIC); Nitrate,Urine Negative (Negative); Protein,Urine TRACE (Negative); Urobilinogen,Urine 0.2 EU/dl (0.2)
[2024-09-30] MEDS: LACTATED RINGERS 1000ML 1,000 ML 999 ML IV (21:04)
[2024-09-30] MEDS: PHYTONADIONE 10 MG in 0.9 % SODIUM CHLORIDE 50 ML 100 MG IV (21:05)
[2024-09-30] MEDS: PIPERACILLIN/TAZO 3.375 GM in 0.9 % SODIUM CHLORIDE 50 ML IV (21:07)
[2024-09-30 21:17] LABS: Amorphous Sediment,Urine 1+ /lpf; Bacteria,Urine 3+ /lpf
--- NOTE | 2024-09-30 21:50 | PC.NURSE ---
Pt came to ER with 14G IV to left arm and 18 G to right arm. ER staff started 18 G to right lower arm as well as 18 G to left lower arm. Pt tolerated well without incident.
--- NOTE | 2024-09-30 21:57 | PC.NURSE ---
Pt was transported to CT with primary RN to monitor during scans. Pt tolerated well with continued complaints of abdominal pain.
[2024-10-01 00:09] LABS: Reflex Lactic Add Lactic Reflex
--- NOTE | 2024-10-01 17:01 | PC.NURSE ---
Blood culture results faxed to ER at [phone].
[2024-10-02 19:52] LABS: Peripheral Smear Review Scanned Result
== END 2024-09-30 21:12 | disposition short-term general hospital (02) ==
PROVIDERS: Physician Assistant; Emergency Provider Emergency Medicine
DX: I71.30 Abdominal aortic aneurysm, ruptured, unspecified (principal); I95.9 Hypotension, unspecified; R10.0 Acute abdomen; I48.20 Chronic atrial fibrillation, unspecified; I25.10 Atherosclerotic heart disease of native coronary artery without angina pectoris; I11.9 Hypertensive heart disease without heart failure; E78.5 Hyperlipidemia, unspecified; Z79.01 Long term (current) use of anticoagulants; Z95.0 Presence of cardiac pacemaker; Z87.891 Personal history of nicotine dependence
CPT/HCPCS: 36430; 51702; 70450; 70496; 70498; 71275; 72125; 72128; 72131; 72192; 74174; 80053; 81001; 82550; 82803; 83605; 83880; 84145; 84484; 85007; 85025; 85027; 85378; 85610; 85651; 86140; 86850; 87040; 87086; 87186; 87636; 93005; 96365; 99291; J2543; J3430; J7120; P9016; Q9967